=== PATIENT | male | born 1985 | race Caucasian/White ===

== ENCOUNTER 2016-09-23 18:02 | Emergency (ER) | payer MEDICAID, OTHER ==
[~2016-09-23] VITALS: Ht 170.2 cm; Wt 99.8 kg
[2016-09-23] MEDS ORDERED: KETOROLAC TROMETH 60MG/2ML VIAL IM ONE (21:30)
[2016-09-23 21:45] VITALS: BP 120/72
== END 2016-09-23 21:54 | disposition home or self-care (01) ==
LOC: ER 18:06
DX: K04.7 Periapical abscess without sinus (principal); F17.210 Nicotine dependence, cigarettes, uncomplicated
CPT/HCPCS: 96372; 99283; J1885

== ENCOUNTER 2017-01-04 13:32 | Emergency (ER) | payer MEDICAID ==
[~2017-01-04] VITALS: Ht 170.2 cm; Wt 81.6 kg
[2017-01-04 14:07] VITALS: BP 132/86
== END 2017-01-04 14:19 | disposition home or self-care (01) ==
LOC: ER 13:42
DX: K05.10 Chronic gingivitis, plaque induced (principal); F17.210 Nicotine dependence, cigarettes, uncomplicated

== ENCOUNTER 2017-05-19 11:40 | Emergency (ER) | payer MEDICAID ==
[~2017-05-19] VITALS: Ht 167.6 cm; Wt 95.3 kg
[2017-05-19 12:38] VITALS: BP 143/107
== END 2017-05-19 13:04 | disposition left against medical advice (07) ==
LOC: ER 11:40
DX: M54.9 Dorsalgia, unspecified (principal); Z53.21 Procedure and treatment not carried out due to patient leaving prior to being seen by health care provider